=== PATIENT | female | born 1950 | race Caucasian/White ===

== ENCOUNTER 2025-01-09 19:06 | Emergency (ER) | payer OTHER ==
[2025-01-09] MEDS ORDERED: Ketorolac Tromethamine 30 MG (1 mL) VIAL ONE (22:07)
== END 2025-01-09 22:18 | disposition home or self-care (01) ==
LOC: ERS 19:06
DX: M25.561 Pain in right knee (principal); X50.1XXA Overexertion from prolonged static or awkward postures, initial encounter
CPT/HCPCS: 73564; 93971; J1885; 96372